=== PATIENT | female | born 1990 | race Caucasian/White ===

== ENCOUNTER 2017-03-15 01:52 | Emergency (ER) | payer SELFPAY ==
[2017-03-15 02:33] VITALS: BMI 22.8
--- NOTE | 2017-03-15 02:54 | PDOC ---
History of Present Illness - General Chief Complaint: Pain, Acute Stated Complaint: ABDOMINAL PAIN Time Seen by Provider: 03/15/17 02:31 History Source: Patient Exam Limitations: No Limitations - History of Present Illness Initial Comments: 03/15/17 02:48 The patient is a 26F with no PMH who presents to the ER with abdominal pain. The patient states that her pain started around 2230 last night, is intermittent , crampy in nature, and lasts for 10-15 seconds where it is a 7/10. During these painful episodes, she feels nauseous. She made herself vomit once to try to alleviate the pain, but this did not help. She has not vomited since then. She states that last night, she worked out, then came home and ate doritos and tate dip and felt very bloated, more than she's normally felt. She currently denies any pain. She denies any fever, chills, nausea, vomiting, diarrhea, constipation, vaginal bleeding/discharge, dysuria, flank pain, and hematuria. Past History - Past Medical History Allergies/Adverse Reactions: Allergies Allergy/AdvReac Type Severity Reaction Status Date / Time No Known Allergies Allergy Verified 03/15/17 02:31 Home Medications: Ambulatory Orders NK [No Known Home Medication] 03/15/17 COPD: No - Immunization History Immunization Up to Date: Yes - Suicide/Smoking/Psychosocial Hx Smoking History: Never smoked Have you smoked in the past 12 months: No Information on smoking cessation initiated: No Hx Alcohol Use: No Drug/Substance Use Hx: No Substance Use Type: None Review of Systems - Review of Systems Able to Perform ROS?: Yes Comments:: 03/15/17 02:55 GENERAL/CONSTITUTIONAL: No fever or chills. No weakness. HEAD, EYES, EARS, NOSE AND THROAT: No change in vision. No ear pain or discharge. No sore throat. CARDIOVASCULAR: No chest pain, palpitations, or lightheadedness. RESPIRATORY: No cough, wheezing, shortness of breath, or hemoptysis. GASTROINTESTINAL: Positive for abdominal pain, previous nausea and vomiting. No current nausea, vomiting, diarrhea, or constipation. GENITOURINARY: No dysuria, frequency, hematuria, or change in urination. MUSCULOSKELETAL: No joint or muscle swelling or pain. No neck or back pain. SKIN: No rash or lesions. NEUROLOGIC: No headache, numbness, tingling, weakness, loss of consciousness, or change in strength/sensation. ENDOCRINE: No increased thirst. No abnormal weight change. HEMATOLOGIC/LYMPHATIC: No anemia, easy bleeding, or history of blood clots. ALLERGIC/IMMUNOLOGIC: No hives or skin allergy. Is the patient limited Bulgarian proficient: No *Physical Exam - Vital Signs Last Vital Signs Temp Pulse Resp BP Pulse Ox 98.6 F 72 20 112/67 100 03/15/17 01:58 03/15/17 01:58 03/15/17 01:58 03/15/17 01:58 03/15/17 01:58 - Physical Exam Comments: 03/15/17 02:56 GENERAL: Well developed, well nourished. Awake and alert. No acute distress. HEENT: Normocephalic, atraumatic. Hearing grossly normal. Moist mucous membranes. PERRLA, EOMI. No conjunctival pallor. Sclera are non-icteric. NECK: Supple. Full ROM. No JVD. CARDIOVASCULAR: Regular rate and rhythm. No murmurs, rubs, or gallops. PULMONARY: No evidence of respiratory distress. Lungs clear to auscultation bilaterally. No wheezing, rales or rhonchi. ABDOMINAL: Soft. Tender to deep palpation over suprapubic and inferior to umbilicus. No RLQ or RUQ tenderness. Negative McBurney's point tenderness. Non- distended. No rebound or guarding. PELVIC: Normal external genitalia. Cervical os closed. No discharge or bleeding noted. No CMT. No adnexal tenderness. GENITOURINARY: No CVA tenderness bilaterally. MUSCULOSKELETAL: Normal range of motion at all joints. No bony deformities or tenderness. EXTREMITIES: No cyanosis. No clubbing. No edema. No calf tenderness. SKIN: Warm and dry. Normal capillary refill. No rashes. No jaundice. NEUROLOGICAL: Alert, awake, appropriate. Cranial nerves 2-12 intact. Normal speech. Gait is normal without ataxia. PSYCHIATRIC: Cooperative. Good eye contact. Appropriate mood and affect. ED Treatment Course - LABORATORY CBC & Chemistry Diagram: 03/15/17 04:04 03/15/17 04:04 Medical Decision Making - Medical Decision Making 03/15/17 02:57 The patient is a 26F with no PMH who presents with acute onset of sharp abdominal pain. She denies any vaginal symptoms. Upreg and UA sent. This is likely not to be appendicitis d/t the patient's. Without labs, her huerta score is 1 which is unlikely appendicitis. Pending UA and Upreg. Will perform pelvic exam to r/o CMT and STI's. 03/15/17 03:59 Pelvic exam is normal. Will order transvaginal US. 03/15/17 07:19 Pt signed out to day team, Dr. Ayala.
[2017-03-15 03:03] LABS: URINE APPEARANCE CLEAR; URINE BILIRUBIN NEGATIVE (NEGATIVE); URINE BLOOD NEGATIVE (NEGATIVE); URINE COLOR LTYELLOW; URINE GLUCOSE (UA) NEGATIVE (NEGATIVE); URINE KETONE 2+ (NEGATIVE); URINE LEUK ESTERASE NEGATIVE (NEGATIVE); URINE NITRITE NEGATIVE (NEGATIVE); URINE PROTEIN NEGATIVE (NEGATIVE); URINE UROBILINOGEN NEGATIVE mg/dL (0.2-1.0)
[2017-03-15 03:05] LABS: HCG,QUALITATIVE URINE NEGATIVE
--- NOTE | 2017-03-15 03:34 | PDOC ---
Attending Attestation - Resident Resident Name: SenMaxwell baird - ED Attending Attestation I have performed the following: I have examined & evaluated the patient, The case was reviewed & discussed with the resident, I agree w/resident's findings & plan, Exceptions are as noted - HPI HPI: 03/15/17 03:32 26-year-old female patient with no past medical history presents with lower abdominal pain since today. The patient reported that she was in her usual state of health and was at the gym. Subsequently returned home and ate Doritos and beans. Afterwards, she developed a fairly sudden sharp lower abdominal pain that was constant. States it waxes and wanes. Thayer nauseous and vomited once. Denies diarrhea, dysuria or vaginal bleeding. She is approximately 3 weeks after her menstrual cycle. - Physicial Exam PE: 03/15/17 03:34 GENERAL: Awake, alert, and fully oriented, in no acute distress. HEAD: No signs of trauma EYES: PERRLA, EOMI, sclera anicteric, conjunctiva clear ENT: Auricles normal inspection, hearing grossly normal, nares patent, oropharynx clear without exudates. NECK: Normal ROM, supple, no lymphadenopathy, JVD, or masses LUNGS: Breath sounds equal, clear to auscultation bilaterally. No wheezes, and no crackles HEART: Regular rate and rhythm, normal S1 and S2, no murmurs, rubs or gallops ABDOMEN: Soft, TTP LLQ, suprapubic, RLQ. No rebound, no guarding. EXTREMITIES: Normal range of motion, no edema. No clubbing or cyanosis. No cords, erythema, or tenderness NEUROLOGICAL: Cranial nerves II through XII grossly intact. Normal speech SKIN: Warm, Dry, normal turgor, no rashes or lesions noted. - Medical Decision Making 03/15/17 03:34 Vital Signs Temp Pulse Resp BP Pulse Ox 98.6 F 72 20 112/67 100 03/15/17 01:58 03/15/17 01:58 03/15/17 01:58 03/15/17 01:58 03/15/17 01:58 The patient is otherwise nontoxic appearing. She does have lower abdominal pain which I suspect may be ovarian cyst rupture versus less likely appendicitis. I have very low suspicion for ovarian torsion at this time given her appearance and her physical exam. We'll however have the resident performed a STILL CLEANER TUBE exam. We' ll perform labs, urinalysis was cystitis and a transvaginal ultrasound. If workup is unremarkable and the patient to have persistent pain, we'll obtain a CAT scan the abdomen pelvis to rule out appendicitis. 03/15/17 06:30 CBC, BMP 03/15/17 04:04 03/15/17 04:04 CMP Sodium 140 mmol/L (136-145) 03/15/17 04:04 Potassium 3.7 mmol/L (3.5-5.1) 03/15/17 04:04 Chloride 104 mmol/L (98-107) 03/15/17 04:04 Carbon Dioxide 25 mmol/L (21-32) 03/15/17 04:04 Anion Gap 11 (8-16) 03/15/17 04:04 BUN 11 mg/dL (7-18) 03/15/17 04:04 Creatinine 0.7 mg/dL (0.55-1.02) 03/15/17 04:04 Creat Clearance w eGFR > 60 (>60) 03/15/17 04:04 Random Glucose 103 mg/dL (74-106) 03/15/17 04:04 Calcium 9.0 mg/dL (8.5-10.1) 03/15/17 04:04 Total Bilirubin 0.5 mg/dL (0.2-1.0) 03/15/17 04:04 AST 16 U/L (15-37) 03/15/17 04:04 ALT 18 U/L (12-78) 03/15/17 04:04 Alkaline Phosphatase 56 U/L (45-117) 03/15/17 04:04 Total Protein 7.3 g/dl (6.4-8.2) 03/15/17 04:04 Albumin 4.1 g/dl (3.4-5.0) 03/15/17 04:04 Beta HCG, Quant < 1.0 mIU/ml 03/15/17 04:04 Urine Test Results Urine Color Ltyellow 03/15/17 02:54 Urine Appearance Clear 03/15/17 02:54 Urine pH 8.0 (5.0-8.0) 03/15/17 02:54 Ur Specific [place] 1.016 (1.001-1.035) 03/15/17 02:54 Urine Protein Negative (NEGATIVE) 03/15/17 02:54 Urine Glucose (UA) Negative (NEGATIVE) 03/15/17 02:54 Urine Ketones 2+ (NEGATIVE) H 03/15/17 02:54 Urine Blood Negative (NEGATIVE) 03/15/17 02:54 Urine Nitrite Negative (NEGATIVE) 03/15/17 02:54 Urine Bilirubin Negative (NEGATIVE) 03/15/17 02:54 Ur Leukocyte Esterase Negative (NEGATIVE) 03/15/17 02:54 pt awaiting imaging. Will endorse over to the day team for further management
[2017-03-15 04:24] LABS: BASO % 0.4 % (0-2.0); EOS % 0.4 % (0-4.5); HEMATOCRIT 37.1 % (32.4-45.2); HEMOGLOBIN 12.6 GM/dL (10.7-15.3); LYMPH % 13.3 % (8-40); MCH 30.9 pg (25.7-33.7); MCHC 33.9 g/dl (32.0-36.0); MEAN CELL VOLUME 91.3 fl (80-96); MEAN PLT VOLUME 9.1 fl (7.5-11.1); MONO % 5.7 % (3.8-10.2); NEUT % 80.2 % (42.8-82.8); PLATELET COUNT 213 K/MM3 (134-434); RBC 4.06 M/mm3 (3.60-5.2); RDW 13.7 % (11.6-15.6); WHITE BLOOD COUNT 12.3 K/mm3 (4.0-10.0)
[2017-03-15 04:47] LABS: ALBUMIN 4.1 g/dl (3.4-5.0); ANION GAP 11 (8-16); BLOOD UREA NITROGEN 11 mg/dL (7-18); CHLORIDE 104 mmol/L (98-107); CO2 25 mmol/L (21-32); CREATININE 0.7 mg/dL (0.55-1.02); GLUCOSE,RANDOM 103 mg/dL (74-106); POTASSIUM 3.7 mmol/L (3.5-5.1); SGOT/AST 16 U/L (15-37); SGPT/ALT 18 U/L (12-78); SODIUM 140 mmol/L (136-145)
[2017-03-15 04:51] LABS: ALK PHOS 56 U/L (45-117); BILIRUBIN,TOTAL 0.5 mg/dL (0.2-1.0); TOT PROT 7.3 g/dl (6.4-8.2)
[2017-03-15 07:12] VITALS: TEMP 97.7
--- NOTE | 2017-03-15 09:31 | PDOC ---
*Physical Exam - Vital Signs Last Vital Signs Temp Pulse Resp BP Pulse Ox 97.7 F 87 20 94/58 99 03/15/17 07:11 03/15/17 07:11 03/15/17 01:58 03/15/17 07:11 03/15/17 07:11 - Physical Exam Comments: Received sign-out from Dr Castillo. 26yo healthy F who presented with sharp suprapubic pain after working out at gym. Initially felt nauseous and vomited once, but currently tolerates PO. Labwork only shows mild leukocytosis. UA is clean. Patient re-examined and is walking around the ER, feels much improved. Endorses no nausea, vomiting. Possible cyst rupture? Will await for TVUS. If negative, patient will followup with OBGYN ED Treatment Course - LABORATORY CBC & Chemistry Diagram: 03/15/17 04:04 03/15/17 04:04 - ADDITIONAL ORDERS Additional order review: Laboratory Results 03/15/17 03/15/17 04:04 02:54 Sodium 140 Potassium 3.7 Chloride 104 Carbon Dioxide 25 Anion Gap 11 BUN 11 Creatinine 0.7 Creat Clearance w eGFR > 60 Random Glucose 103 Calcium 9.0 Total Bilirubin 0.5 AST 16 ALT 18 Alkaline Phosphatase 56 Total Protein 7.3 Albumin 4.1 Beta HCG, Quant < 1.0 Urine Color Ltyellow Urine Appearance Clear Urine pH 8.0 Ur Specific [place] 1.016 Urine Protein Negative Urine Glucose (UA) Negative Urine Ketones 2+ H Urine Blood Negative Urine Nitrite Negative Urine Bilirubin Negative Urine Urobilinogen Negative Ur Leukocyte Esterase Negative Urine HCG, Qual Negative 03/15/17 04:04 RBC 4.06 MCV 91.3 MCHC 33.9 RDW 13.7 MPV 9.1 Neutrophils % 80.2 Lymphocytes % 13.3 Monocytes % 5.7 Eosinophils % 0.4 Basophils % 0.4 Medical Decision Making - Medical Decision Making Ultrasound report shows small free fluid in cul-de-sac extending to adnexa, c/w recent cyst rupture. Patient is no longer in pain. Pt dispo home, to f/u with primary. Will refer to resident clinic as patient would like a new primary doctor *DC/Admit/Observation/Transfer Diagnosis at time of Disposition: Ruptured ovarian cyst - Discharge Dispostion Disposition: HOME Condition at time of disposition: Improved Admit: No - Referrals Referrals: Santana Damon MD [Staff Physician] - 7 days (Please Make an Appointment with the "Resident Clinic") - Patient Instructions Printed Discharge Instructions: DI for Ovarian Cyst - Post Discharge Activity
[2017-03-15 10:26] VITALS: BP 104/62; PULSE 89
== END 2017-03-15 10:27 | disposition home or self-care (01) ==
LOC: JER 01:52
DX: R10.9 Unspecified abdominal pain (principal); R11.2 Nausea with vomiting, unspecified; N83.299 Other ovarian cyst, unspecified side
CPT/HCPCS: 36415; 76830-TC; 80053; 81003; 84702; 84703; 85025; 87086; 99283-25

== ENCOUNTER 2021-05-09 21:58 | Emergency (ER) | payer OTHER ==
[2021-05-09 22:03] VITALS: TEMP 99; BMI 23.6
[2021-05-09] MEDS ORDERED: ACETAMINOPHEN 1000 MG/100 ML BAG IVPB ONE (23:11)
[2021-05-09] MEDS ORDERED: LACTATED RINGERS SOLUTION 1000 ML INFUS.BAG IV ONE (23:11)
[2021-05-09] MEDS ORDERED: morphine CARPU-JECT 2 MG/1 ML DISP.SYRIN IVPUSH ONE (23:23)
[2021-05-09 23:58] LABS: BASO % 0.5 % (0-2.0); HEMATOCRIT 38.6 % (32.4-45.2); HEMOGLOBIN 13.3 GM/dL (10.7-15.3); LYMPH % 16.2 % (8-40); MCHC 34.4 g/dl (32.0-36.0); MEAN CELL VOLUME 90.2 fl (80-96); MEAN PLT VOLUME 8.3 fl (7.5-11.1); MONO % 6.2 % (3.8-10.2); NEUT % 76.1 % (42.8-82.8); PH,URINE 5.5 (5.0-8.0); PLATELET COUNT 221 10^3/uL (134-434); RBC 4.28 M/mm3 (3.60-5.2); RDW 13.2 % (11.6-15.6); URINE APPEARANCE CLEAR; URINE BILIRUBIN NEGATIVE (NEGATIVE); URINE COLOR YELLOW; URINE GLUCOSE (UA) NEGATIVE (NEGATIVE); URINE KETONE NEGATIVE (NEGATIVE); URINE LEUK ESTERASE NEGATIVE (NEGATIVE); URINE NITRITE NEGATIVE (NEGATIVE); URINE PROTEIN NEGATIVE (NEGATIVE); URINE UROBILINOGEN 0.2 mg/dL (0.2-1.0); WHITE BLOOD COUNT 10.2 K/mm3 (4.0-10.0)
[2021-05-10 00:01] VITALS: BP 136/80; PULSE 117
[2021-05-10 00:14] LABS: INR 1.03 (0.83-1.09); PROTHROMBIN TIME (PATIENT) 11.9 SEC (9.7-13.0)
[2021-05-10 00:16] LABS: CHLORIDE 103 mmol/L (98-107); SODIUM 137 mmol/L (136-145)
[2021-05-10 00:19] LABS: ALBUMIN 4.2 g/dl (3.4-5.0); ANION GAP 8 MMOL/L (8-16); BLOOD UREA NITROGEN 11.8 mg/dL (7-18); CALCIUM 8.8 mg/dL (8.5-10.1); CO2 26 mmol/L (21-32); GLUCOSE,RANDOM 98 mg/dL (74-106)
[2021-05-10 00:21] LABS: SGOT/AST 15 U/L (15-37)
[2021-05-10 00:22] LABS: CREATININE 0.9 mg/dL (0.55-1.3)
[2021-05-10 00:23] LABS: BILIRUBIN,TOTAL 0.4 mg/dL (0.2-1); SGPT/ALT 23 U/L (13-61); TOT PROT 8.3 g/dl (6.4-8.2)
[2021-05-10 00:24] LABS: ALK PHOS 69 U/L (45-117)
[2021-05-10] MEDS ORDERED: KETOROLAC TROMETHAMINE 15 MG/ML VIAL IVPUSH ONE (02:01)
[2021-05-10] MEDS ORDERED: AMOX TR/POT CLAV 875MG/125MG TABLETS (FP) PO ONE (02:05)
[2021-05-10] MEDS ORDERED: KETOROLAC TROMETHAMINE 15 MG/ML VIAL ONE (02:08)
[2021-05-10] MEDS ORDERED: AMOX TR/POT CLAV 875MG/125MG TABLETS (FP) ONE (02:08)
== END 2021-05-10 02:28 | disposition home or self-care (01) ==
LOC: JER 21:58
PROC: 3E033GC Introduction of Other Therapeutic Substance into Peripheral Vein, Percutaneous Approach (ICD-10-PCS; principal; 2021-05-09)
DX: K57.92 Diverticulitis of intestine, part unspecified, without perforation or abscess without bleeding (principal)
CPT/HCPCS: 36415; 74177-TC; 80053; 81003; 84702; 85025; 85610; 85730; 86850; 86900; 86901; 87086; 93005; 93010; 99285-25

== ENCOUNTER 2022-08-06 12:15 | Emergency (ER) | payer OTHER ==
[2022-08-06 12:33] VITALS: BMI 23.6
[2022-08-06] MEDS ORDERED: ACETAMINOPHEN 1000 MG/100 ML BAG IVPB ONE (13:23)
[2022-08-06] MEDS ORDERED: ACETAMINOPHEN INJECTION 100 ML IVPB ONE (13:51)
[2022-08-06 13:58] LABS: BASO % 0.3 % (0-2.0); EOS % 0.2 % (0-4.5); HEMATOCRIT 38.3 % (32.4-45.2); HEMOGLOBIN 12.4 GM/dL (10.7-15.3); LYMPH % 44.8 % (8-40); MCH 29.2 pg (25.7-33.7); MCHC 32.4 g/dl (32.0-36.0); MEAN CELL VOLUME 90.1 fl (80-96); MEAN PLT VOLUME 9.2 fl (7.5-11.1); MONO % 15.1 % (3.8-10.2); NEUT % 39.6 % (42.8-82.8); PLATELET COUNT 166 10^3/uL (134-434); RBC 4.26 M/mm3 (3.60-5.2); RDW 13.6 % (11.6-15.6); WHITE BLOOD COUNT 2.6 K/mm3 (4.0-10.0)
[2022-08-06 14:20] LABS: POTASSIUM 3.8 mmol/L (3.5-5.1)
[2022-08-06 14:23] LABS: ALBUMIN 3.8 g/dl (3.4-5.0); CALCIUM 8.8 mg/dL (8.5-10.1)
[2022-08-06 14:24] LABS: BLOOD UREA NITROGEN 5.6 mg/dL (7-18)
[2022-08-06 14:26] LABS: CREATININE 0.7 mg/dL (0.55-1.3)
[2022-08-06 14:28] LABS: BILIRUBIN,TOTAL 0.3 mg/dL (0.2-1); TOT PROT 7.2 g/dl (6.4-8.2)
[2022-08-06 15:01] LABS: THROAT:GRP A STREP NOT DETECTED (NOTDETECTED)
[2022-08-06 15:18] LABS: URINE APPEARANCE CLEAR; URINE BILIRUBIN NEGATIVE (NEGATIVE); URINE COLOR YELLOW; URINE GLUCOSE (UA) NEGATIVE (NEGATIVE); URINE KETONE NEGATIVE (NEGATIVE); URINE LEUK ESTERASE NEGATIVE (NEGATIVE); URINE NITRITE NEGATIVE (NEGATIVE); URINE PROTEIN NEGATIVE (NEGATIVE); URINE UROBILINOGEN 0.2 mg/dL (0.2-1.0)
[2022-08-06 15:21] LABS: HCG,QUALITATIVE URINE Negative
[2022-08-06 15:31] VITALS: BP 96/65; PULSE 90; RESP 16; TEMP 98.5
== END 2022-08-06 15:36 | disposition home or self-care (01) ==
LOC: JER 12:15
PROC: 3E033NZ Introduction of Analgesics, Hypnotics, Sedatives into Peripheral Vein, Percutaneous Approach (ICD-10-PCS; principal; 2022-08-06)
DX: R50.9 Fever, unspecified (principal); R19.7 Diarrhea, unspecified; R10.9 Unspecified abdominal pain; J11.1 Influenza due to unidentified influenza virus with other respiratory manifestations; R11.2 Nausea with vomiting, unspecified; M79.10 Myalgia, unspecified site; R53.1 Weakness; Z20.822 Contact with and (suspected) exposure to COVID-19
CPT/HCPCS: 0241U-QW; 36415; 71046-TC-FY; 80053; 81003; 84703; 85025; 87086; 87651; 99284-25